=== PATIENT | female | born 1980 | race Caucasian/White ===

== ENCOUNTER 2017-04-14 19:17 | Emergency (ER) | payer OTHER ==
--- NOTE | 2017-04-14 19:40 | EDPHY ---
H & P Stated Complaint: NAUSEA/'DONT FEEL WELL', HIT BACK OF HEAD GETTING IN SHOWER YEST Time Seen by Provider: 04/14/17 19:39 HPI/ROS: CHIEF COMPLAINT: [ ] HISTORY OF PRESENT ILLNESS: [Need 4: Location, Duration, Severity, Quality, Context, Timing Modifying Factors, Associated S&S] REVIEW OF SYSTEMS: A comprehensive 10 point review of systems is otherwise negative aside from elements mentioned in the history of present illness. - Personal History LMP (Females 10-55): Hysterectomy Current Tetanus/Diphtheria Vaccine: Yes Tetanus Vaccine Date: 2013 - Medical/Surgical History Hx Asthma: Yes Hx Chronic Respiratory Disease: No Hx Diabetes: No Hx Cardiac Disease: No Hx Renal Disease: No Hx Cirrhosis: No Hx Alcoholism: No Hx HIV/AIDS: No Hx Splenectomy or Spleen Trauma: No Other PMH: hysterectomy. L AND R ovarian torsion. 4 KNEE SURG. ASTHMA - Social History Smoking Status: Never smoked - Physical Exam Exam: General Appearance: [Alert, no distress] Eyes: [Pupils equal and round no pallor or injection] ENT, Mouth: [Mucous membranes moist] Respiratory: [There are no retractions, lungs are clear to auscultation] Cardiovascular: [Regular rate and rhythm] Gastrointestinal: [Abdomen is soft and nontender, no masses, bowel sounds normal] Neurological: [A&O, normal motor function, normal sensory exam, normal cranial nerves] Skin: [Warm and dry, no rashes] Musculoskeletal: [Neck is supple nontender] Extremities: [symmetrical, full range of motion] Psychiatric: [Patient is oriented X 3, there is no agitation] Constitutional: Initial Vital Signs Temperature (C) 37.1 C 04/14/17 19:20 Heart Rate 50 L 04/14/17 19:20 Respiratory Rate 20 04/14/17 19:20 Blood Pressure 124/60 H 04/14/17 19:20 O2 Sat (%) 98 04/14/17 19:20 O2 Delivery Mode Room Air Allergies/Adverse Reactions: No Known Allergies Allergy (Unverified 04/14/17 19:27) Home Medications: Medication Instructions Recorded Cetirizine [ZyRTEC] 10 mg PO DAILY 09/09/10 Albuterol [Proventil Inhaler HFA 1 - 2 puffs IH Q4 PRN 05/23/14 (RX)] Calcium Carbonate [Oyster Shell 500 mg PO DAILY 06/18/14 Calcium 500 mg (OTC)] Cholecalciferol Vit D3 [Vitamin D3 1,000 units PO DAILY 06/18/14 (OTC)] Herbals/Supplements -Info Only 1 ea PO AD 06/18/14 Montelukast Sodium [Singulair] 10 mg PO DAILY 06/18/14 Multivitamins [Tab-A-Kp] 1 each PO DAILY 06/18/14 Celexa 04/14/17 Departure - Departure Referrals: Vaishali Albert NP [Primary Care Provider] - As per Instructions
[2017-04-14] MEDS ORDERED: ONDANSETRON 4 MG/2 ML VIAL ONE (19:41)
[2017-04-14] MEDS ORDERED: ONDANSETRON 4 MG/2 ML VIAL IVP ONE (19:46)
[2017-04-14] MEDS ORDERED: NS 1,000 ML IV ONE (19:47)
--- NOTE | 2017-04-14 20:08 | EDPHY ---
H & P Time Seen by Provider: 04/14/17 19:39 HPI/ROS: HPI Head injury. 36-year-old female by private vehicle with her boyfriend. This patient reports yesterday she was getting into the bathtub. She accidentally slipped and fell backwards striking the right back side of her head on the edge of the bathtub. She reports that she felt all right last night. However, today she is having some issues with memory and reports that she has felt nauseous all day. She has not vomited. She describes having a dull headache as well. Describes this headache as gradual in onset after she woke up this morning. Denies neck pain. No loss of sensation or weakness in her extremities. No other complaint. ROS: Constitutional: No fever, no chills. No weakness. Eyes: No discharge. No changes in vision. ENT: No sore throat. No nasal congestion or rhinorrhea. Respiratory: No cough. No shortness of breath. Cardiac: No chest pain, no palpitations. Gastrointestinal: No abdominal pain, no vomiting, no diarrhea. Genitourinary: No hematuria. No dysuria or increased frequency with urination. Musculoskeletal: No back pain. No neck pain. No myalgias or arthralgias. Skin: No rashes. Neurological: No headache. No focal weakness or altered sensation. Past medical history: Hysterectomy. Right and left ovarian torsion, knee surgeries asthma. Social history: Nonsmoker. Here with boyfriend. Denies alcohol. Physical Exam: General Appearance: Alert, no distress. This patient is responding to questions appropriately and in full sentences. This patient appears well- hydrated and well-nourished. Head: Normocephalic atraumatic. Face: Facial bones are stable on palpation. Eyes: Pupils equal and round and reactive to light, no pallor or injection. No lid erythema or edema. ENT, Mouth: Mucous membranes moist. Dentition is intact. No malocclusion of the jaw. No tongue lacerations or abrasions. Pharynx is clear. The bilateral nasal canals are clear. No septal hematoma. External auditory canals and tympanic membranes are normal bilaterally. No hemotympanum. Respiratory: There are no retractions, lungs are clear to auscultation with good air movement bilaterally. Chest wall is stable to AP and lateral palpation. Cardiovascular: Regular rate and rhythm. No murmur. Gastrointestinal: Abdomen is soft and nontender, no masses, bowel sounds normal. Neurological: Motor sensory function is intact. Cranial nerves are normal. Cerebellar function intact. Skin: Warm and dry, no rashes. No lacerations, abrasions or contusions. Musculoskeletal: Neck is supple and nontender. The trachea is midline. No midline cervical, thoracic, lumbar or sacral tenderness on palpation. No flank tenderness on palpation. Extremities are symmetrical, full range of motion. All joints in the bilateral upper and bilateral lower extremities range without pain or impingement. No tenderness on palpation of the long bones in the bilateral upper and bilateral lower extremities. Psychiatric: No agitation. No depression. Database: EKG: Imaging: CT head without contrast: There are small punctate areas of air seen along the right skull base and near the right zygoma. This is otherwise a normal study. Results were discussed with staff radiologist Dr. Dayron Romo. Procedures: Emergency department course: IV placed. Vital signs reviewed. She was started on IV normal saline with 1 L to be given over the next hour. She was initially given 4 mg of IV Zofran. This will be repeated as needed for nausea. She consents to CT imaging of her brain. 10:00 p.m., patient re-evaluated. Resting comfortably at this time. Resting comfortably. No more nausea. She was given 600 mg of ibuprofen by the nursing staff. She denies any significant headache. States that she feels better. Repeat neurologic Assessment is nonfocal. She feels comfortable going home. 10:15 p.m., homero consult to review CT images with on-call neurosurgeon Dr. Simon Ramos who was helping me with a trauma case. His opinion is that the patient is safe for discharge. No antibiotics required. 10:20 p.m., patient up and ambulatory. She and her feel comfortable being discharged. Head injury precautions were discussed with the 2 of them. All of their questions were answered. Follow-up with Neurology for management of concussion symptoms was discussed. The patient was discharged home in good condition with her . Differential Diagnosis: The differential diagnosis on this patient includes but is not limited to concussion syndrome. This represents a partial list of diagnoses considered. These considerations are based on history, physical exam, past history, reassessment and diagnostic testing. Smoking Status: Never smoked Constitutional: Initial Vital Signs Temperature (C) 37.1 C 04/14/17 19:20 Heart Rate 50 L 04/14/17 19:20 Respiratory Rate 20 04/14/17 19:20 Blood Pressure 124/60 H 04/14/17 19:20 O2 Sat (%) 98 04/14/17 19:20 O2 Delivery Mode Room Air O2 (L/minute) 2 Allergies/Adverse Reactions: No Known Allergies Allergy (Unverified 04/14/17 19:27) Home Medications: Medication Instructions Recorded Cetirizine [ZyRTEC] 10 mg PO DAILY 09/09/10 Albuterol [Proventil Inhaler HFA 1 - 2 puffs IH Q4 PRN 05/23/14 (RX)] Calcium Carbonate [Oyster Shell 500 mg PO DAILY 06/18/14 Calcium 500 mg (OTC)] Cholecalciferol Vit D3 [Vitamin D3 1,000 units PO DAILY 06/18/14 (OTC)] Herbals/Supplements -Info Only 1 ea PO AD 06/18/14 Montelukast Sodium [Singulair] 10 mg PO DAILY 06/18/14 Multivitamins [Tab-A-Kp] 1 each PO DAILY 06/18/14 Celexa 04/14/17 Ondansetron Odt [Zofran Odt 4 mg 4 mg PO Q4PRN PRN #10 tab 04/14/17 (*)] Medical Decision Making - Data Points Medications Given: Discontinued Medications Acetaminophen (Tylenol) 650 mg PO EDNOW ONE Stop: 04/14/17 21:01 Last Admin: 04/14/17 21:06 Dose: 650 mg Sodium Chloride (Ns) 1,000 mls @ 0 mls/hr IV ONCE ONE; Wide Open PRN Reason: Protocol Stop: 04/14/17 19:48 Last Admin: 04/14/17 19:47 Dose: 1,000 mls Ibuprofen (Motrin) 600 mg PO EDNOW ONE Stop: 04/14/17 21:01 Last Admin: 04/14/17 21:06 Dose: 600 mg Ondansetron HCl (Zofran) 4 mg IVP EDNOW ONE Stop: 04/14/17 19:47 Last Admin: 04/14/17 19:47 Dose: 4 mg Ondansetron HCl (Zofran Odt 4 Mg Prepack#2) 1 btl YOLY RUBIN ONE Stop: 04/14/17 22:33 Last Admin: 04/14/17 22:38 Dose: 1 btl Departure - Departure Disposition: Home, Routine, Self-Care Clinical Impression: Head injury, Concussion syndrome Condition: Good Instructions: Concussion (ED), Head Injury (ED) Additional Instructions: Read and follow provided instructions. Follow-up with Neurology, Dr. Simon Schaffer or 1 of his partners within the next 2-3 days for re-evaluation and ongoing management of your concussion symptoms. He will have access to all of our reports and diagnostic test results here in the emergency department. Take medication as prescribed for nausea. Ibuprofen dosin mg every 6 hours with meals for the next 3 days only. Take only as needed for pain Return to the emergency department for worsening headache, vomiting, confusion or other serious concerns. Referrals: Simon Schaffer MD [Medical Doctor] - As per Instructions Prescriptions: Ondansetron Odt [Zofran Odt 4 mg (*)] 4 mg PO Q4PRN PRN #10 tab PRN Reason: For Nausea & Vomiting
[2017-04-14] MEDS ORDERED: ACETAMINOPHEN 325 MG TAB PO ONE (21:00)
[2017-04-14] MEDS ORDERED: IBUPROFEN 600 MG TAB PO ONE (21:00)
[2017-04-14] MEDS ORDERED: ONDANSETRON 4MG PREPACK#2 BTL TAKEHOME ONE (22:32)
[2017-04-14 22:42] VITALS: BP 113/74; PULSE 40; RESP 16; TEMP 97.9; O2SAT 96
== END 2017-04-14 22:42 | disposition home or self-care (01) ==
DX: S09.90XA Unspecified injury of head, initial encounter (principal); F07.81 Postconcussional syndrome; G44.309 Post-traumatic headache, unspecified, not intractable; E86.9 Volume depletion, unspecified; W01.198A Fall on same level from slipping, tripping and stumbling with subsequent striking against other object, initial encounter; Y92.002 Bathroom of unspecified non-institutional (private) residence as the place of occurrence of the external cause
CPT/HCPCS: 96374; J2405

== ENCOUNTER → 2017-05-01 | Outpatient (CLI) | payer OTHER | LOC: CIMAGING 14:27 | PROVIDERS: ATTEND Physician Assistant Medical | DX: R51 Headache (principal); R93.0 Abnormal findings on diagnostic imaging of skull and head, not elsewhere classified | CPT/HCPCS: 70450-PO ==

== ENCOUNTER → 2017-11-27 | Outpatient (CLI) | payer OTHER | LOC: FIMAGING 08:08 | PROVIDERS: ATTEND Nurse Practitioner Adult Health | DX: E04.2 Nontoxic multinodular goiter (principal) ==